=== PATIENT | female | born 1970 | race Caucasian/White ===

== ENCOUNTER 2023-10-14 03:40 | Emergency (ER) | payer SELFPAY ==
[2023-10-14] MEDS ORDERED: Lorazepam 0.5 MG TAB ONE (04:11)
== END 2023-10-14 05:15 | disposition home or self-care (01) ==
LOC: NAV ERS 03:40
DX: F41.8 Other specified anxiety disorders (principal); I10 Essential (primary) hypertension; Z87.891 Personal history of nicotine dependence
CPT/HCPCS: 93005